=== PATIENT | female | born 1985 | race Caucasian/White ===

== ENCOUNTER 2022-12-28 17:30 | Emergency (ER) | payer BC ==
[2022-12-28 18:14] LABS: BASOPHILS ABSOLUTE AUTO 0.05 10^3/uL (0.00-0.50); BASOPHILS PERCENT AUTO 0.4 % (0-1); EOSINOPHILS ABSOLUTE AUTO 0.13 10^3/uL (0.00-1.50); EOSINOPHILS PERCENT AUTO 1.1 % (0-6); HEMATOCRIT 43.5 % (37.0-47.0); HEMOGLOBIN 15.3 g/dL (12.0-16.0); IMMATURE GRAN ABSOLUTE AUTO 0.01 10^3/uL (0.00-0.49); IMMATURE GRAN PERCENT AUTO 0.1 % (0.0-4.9); LYMPHOCYTES ABSOLUTE AUTO 2.96 10^3/uL (0.60-5.00); MEAN CORPUSCULAR HEMOGLOBIN 32.8 pg (27.0-32.0); MEAN CORPUSCULAR HGB CONC 35.2 g/dL (32.0-36.0); MEAN CORPUSCULAR VOLUME 93.3 fL (83.0-97.0); MONOCYTES ABSOLUTE AUTO 0.66 10^3/uL (0.00-1.50); MONOCYTES PERCENT AUTO 5.6 % (0-10); NEUTROPHILS ABSOLUTE AUTO 8.05 x10^3/uL (1.80-8.00); NEUTROPHILS PERCENT AUTO 67.8 % (41-71); PLATELET COUNT,PLT 369 10^3/uL (150-400); RED BLOOD CELL COUNT 4.66 x10^6/uL (4.00-5.50); WHITE BLOOD CELL COUNT,WBC 11.9 10^3/uL (4.0-11.0)
[2022-12-28 18:16] LABS: APPEARANCE,URINE CLEAR (CLEAR); BILIRUBIN,URINE NEGATIVE (NEGATIVE); COLOR,URINE YELLOW (YELLOW); GLUCOSE,URINE NEGATIVE (NEGATIVE); KETONES,URINE NEGATIVE (NEGATIVE); LEUKOCYTE ESTERASE,URINE TRACE (NEGATIVE); NITRITE,URINE NEGATIVE (NEGATIVE); OCCULT BLOOD,URINE NEGATIVE (NEGATIVE); PH,URINE 5.5 (4.5-8.0); PROTEIN,URINE NEGATIVE (NEGATIVE); UROBILINOGEN,URINE 0.2 EU/dL (0.2-1.0)
[2022-12-28] MEDS ORDERED: Sodium Chloride 0.9% 10 ML Syringe FLUSH PRN (18:20)
[2022-12-28 18:21] LABS: AMPHETAMINES,URINE NEGATIVE (NEGATIVE); BARBITURATES,URINE NEGATIVE (NEGATIVE); BENZODIAZEPINE,URINE NEGATIVE (NEGATIVE); MDMA (ECSTASY), URINE NEGATIVE (NEGATIVE); METHADONE,URINE NEGATIVE (NEGATIVE); METHAMPHETAMINES,URINE NEGATIVE (NEGATIVE); OPIATES,URINE NEGATIVE (NEGATIVE); OXYCODONE,URINE NEGATIVE (NEGATIVE); PHENCYCLIDINE,URINE NEGATIVE (NEGATIVE); TCA,URINE NEGATIVE (NEGATIVE)
[2022-12-28 18:23] LABS: ALANINE AMINOTRANSFERASE,ALT 44 U/L (12-78); ALBUMIN 3.9 g/dL (3.4-5.0); ALKALINE PHOSPHATASE 60 U/L (46-116); ASPARTATE AMNIOTRANSFERASE,AST 24 U/L (15-37); BILIRUBIN TOTAL 0.4 mg/dL (0.0-1.0); BLOOD UREA NITROGEN,BUN 9 mg/dL (7-18); CARBON DIOXIDE,CO2 22 mmol/L (21-32); CHLORIDE,CL 99 mEq/L (98-106); CREATININE 0.8 mg/dL (0.6-1.0); ESTIMATED GFR 98 mL/min (>=60); GLUCOSE RANDOM 114 mg/dL (75-99); POTASSIUM,K 3.3 mEq/L (3.5-5.0); SODIUM,NA 136 mEq/L (136-145)
[2022-12-28 18:27] LABS: BACTERIA,URINE OCCASIONAL /HPF (NOT SEEN); RBC,URINE NOT SEEN /HPF (0-5); SQUAMOUS EPITHELIAL CELLS,UR OCCASIONAL /HPF (NOT SEEN); WBC,URINE 0-5 /HPF (0-5)
[2022-12-28] MEDS: Activated Charcoal/Water Susp 50 GM/240 ML Tube PO ONE ×2 (18:40→18:41)
[2022-12-28] MEDS: Sodium Chloride 0.9% 1,000 ML IV ONE (18:55)
== END 2022-12-28 20:22 ==
LOC: CC.ED 17:30
DX: T43.202A Poisoning by unspecified antidepressants, intentional self-harm, initial encounter (principal); T40.2X2A Poisoning by other opioids, intentional self-harm, initial encounter; T43.292A Poisoning by other antidepressants, intentional self-harm, initial encounter; F32.A Depression, unspecified; F10.929 Alcohol use, unspecified with intoxication, unspecified
CPT/HCPCS: 36415; 80053; 80143; 80305-QW; 80307; 81001; 81025; 85025; 93005; 99285; A9270-GY; J7030